=== PATIENT | male | born 1935 | race Caucasian/White ===

== ENCOUNTER → 2016-04-20 | Outpatient (CLI) | payer BC ==
[~2016-04-20] MED LIST: ACEB200C PO; ACET-1256 PO; ASPEC81 PO; CLB/200 PO; EZET10TA41 PO; FURO-85 PO; MELA1TAB48 PO; NISO20TA PO; OXYSR10 PO; SENN-61 PO; VALS320T2 PO; [UNRECOGNIZED DRUG - REMARK] PO
[2016-04-20 11:13] LABS: BASO % 0.2 %; BASO ABS # 0.02 K/uL (0-0.2); COMPLETE YES; EOS % 3.7 %; HEMATOCRIT 45.1 % (42-52); IG% 0.2 %; LYMPH % 11.1 %; LYMPH ABS # 1.06 K/uL (1.2-3.4); MEAN CELL VOLUME 83.8 fL (80-100); MEAN CORPUSCULAR HEMOGLOBIN 29.7 pg (25-34); MEAN CORPUSCULAR HGB CONC 35.5 g/dl (32-36); MEAN PLATELET VOLUME 9.5 fL (7.4-10.4); MONO % 9.2 %; NEUT % 75.6 %; PLATELET COUNT 199 K/uL (130-400); RED BLOOD COUNT 5.38 M/uL (4.7-6.1); WHITE BLOOD COUNT 9.56 K/uL (4.8-10.8)
[2016-04-20 11:15] LABS: URINE APPEARANCE CLEAR (CLEAR); URINE BILIRUBIN NEG (NEG); URINE COLOR DK YELLOW; URINE EPITHELIAL CELL AUTO 0-5 /lpf (0-5); URINE NITRITE NEG (NEG); UROBILINOGEN NEG (NEG)
[2016-04-20 11:24] LABS: ALT/SGPT 29 U/L (12-78); AST/SGOT 18 U/L (15-37); BLOOD UREA NITROGEN 15 mg/dl (7-18); BUN/CREATININE RATIO 13.8 (10-20); CALCIUM 9.1 mg/dl (8.5-10.1); CARBON DIOXIDE 31 mmol/L (21-32); CHLORIDE 103 mmol/L (98-107); GLUCOSE 110 mg/dl (70-99); POTASSIUM 3.8 mmol/L (3.5-5.1); SODIUM 141 mmol/L (136-145); URIC ACID 6.2 mg/dl (2.6-7.2)
[2016-04-20 11:25] LABS: ESTIMATED AVERAGE GLUCOSE 114 mg/dl; HA1C FLAG Normal (Normal)
[2016-04-20 11:27] LABS: MANUAL MICROSCOPIC REQUIRED? NO; REVIEW REQ? NO
[2016-04-20 11:35] LABS: CHOLESTEROL 120 mg/dl (0-200); HDL CHOLESTEROL 40 mg/dl; LDL CHOLESTEROL CALCULATED 55 mg/dl; TRIGLYCERIDES 123 mg/dl (0-150); VERY LOW DENSITY LIPOPROT CALC 25 mg/dl
--- NOTE | 2016-04-26 05:47 | CODING QUERY MEDICAL NECESSITY ---
SUPPORTING DIAGNOSIS NEEDED A supporting diagnosis is required for the test/procedure performed on this patient in order for us to be reimbursed by the patient's insurance. Please provide a supporting diagnosis for the following test/procedure listed below next to the test name along with your signature. *If there is no additional diagnosis for this patient that would support the following test/procedure please document that below next to the test/procedure. Test(s)/Procedure(s) that require a supporting diagnosis: DOS 04/20 * Hba1c DIAGNOSIS: Provider Signature: Date: Thank you Melba Valenzuela [facility] Information Management Once completed, please kindly fax back to [phone] For questions please call [phone]
== END | disposition home or self-care (01) ==
LOC: C.LAB1850 09:23
PROVIDERS: ATTEND Internal Medicine
DX: E78.00 Pure hypercholesterolemia, unspecified (principal); R73.9 Hyperglycemia, unspecified

== ENCOUNTER → 2016-05-09 | Outpatient (CLI) | payer BC ==
[2016-05-09 15:23] LABS: URINE APPEARANCE CLEAR (CLEAR); URINE BILIRUBIN NEG (NEG); URINE COLOR YELLOW; URINE EPITHELIAL CELL AUTO 0-5 /lpf (0-5); URINE NITRITE NEG (NEG); URINE PH 5.5 (4.5-7.5); URINE SPECIFIC GRAVITY 1.018 (1.000-1.030); UROBILINOGEN NEG (NEG)
[2016-05-09 15:35] LABS: MANUAL MICROSCOPIC REQUIRED? NO; REVIEW REQ? NO
== END | disposition home or self-care (01) ==
LOC: C.LAB1850 14:27
PROVIDERS: ATTEND Internal Medicine
DX: R31.29 Other microscopic hematuria (principal)

== ENCOUNTER → 2016-08-18 | Outpatient (CLI) | payer BC ==
[~2016-08-18] VITALS: Ht 172.7 cm; Wt 117.0 kg
[2016-08-18 16:07] VITALS: BP 152/76; PULSE 55; Ht 172.7 cm; Wt 117.0 kg
== END | disposition home or self-care (01) ==
LOC: C.NEUR 14:12
PROVIDERS: ATTEND Internal Medicine Pulmonary Disease
DX: G47.33 Obstructive sleep apnea (adult) (pediatric) (principal); R60.9 Edema, unspecified

== ENCOUNTER → 2016-10-25 | Outpatient (CLI) | payer BC ==
[2016-10-25 09:38] LABS: BASO % 0.7 %; BASO ABS # 0.04 K/uL (0-0.2); COMPLETE YES; EOS % 4.4 %; HEMATOCRIT 46.2 % (42-52); IG% 0.3 %; LYMPH % 20.7 %; LYMPH ABS # 1.27 K/uL (1.2-3.4); MEAN CELL VOLUME 86.4 fL (80-100); MEAN CORPUSCULAR HEMOGLOBIN 30.1 pg (25-34); MEAN CORPUSCULAR HGB CONC 34.8 g/dl (32-36); MEAN PLATELET VOLUME 8.8 fL (7.4-10.4); MONO % 9.6 %; NEUT % 64.3 %; PLATELET COUNT 200 K/uL (130-400); RED BLOOD COUNT 5.35 M/uL (4.7-6.1); WHITE BLOOD COUNT 6.15 K/uL (4.8-10.8)
[2016-10-25 10:13] LABS: URINE APPEARANCE CLEAR (CLEAR); URINE BILIRUBIN NEG (NEG); URINE COLOR YELLOW; URINE EPITHELIAL CELL AUTO 0-5 /lpf (0-5); URINE NITRITE NEG (NEG); URINE PH 5.5 (4.5-7.5); URINE SPECIFIC GRAVITY 1.021 (1.000-1.030); UROBILINOGEN NEG (NEG)
[2016-10-25 10:14] LABS: ESTIMATED AVERAGE GLUCOSE 114 mg/dl; HA1C FLAG Normal (Normal); MANUAL MICROSCOPIC REQUIRED? NO; REVIEW REQ? NO
[2016-10-25 11:00] LABS: ALT/SGPT 41 U/L (12-78); AST/SGOT 26 U/L (15-37); BLOOD UREA NITROGEN 18 mg/dl (7-18); BUN/CREATININE RATIO 17.8 (10-20); CALCIUM 9.2 mg/dl (8.5-10.1); CARBON DIOXIDE 29 mmol/L (21-32); CHLORIDE 104 mmol/L (98-107); GLUCOSE 111 mg/dl (70-99); POTASSIUM 3.8 mmol/L (3.5-5.1); SODIUM 141 mmol/L (136-145); URIC ACID 7.4 mg/dl (2.6-7.2)
[2016-10-25 11:11] LABS: CHOLESTEROL 138 mg/dl (0-200); CHOLESTEROL/HDL RATIO 3.6; HDL CHOLESTEROL 38 mg/dl; LDL CHOLESTEROL CALCULATED 69 mg/dl; TRIGLYCERIDES 156 mg/dl (0-150); VERY LOW DENSITY LIPOPROT CALC 31 mg/dl
--- NOTE | 2016-10-31 10:34 | CODING QUERY MEDICAL NECESSITY ---
SUPPORTING DIAGNOSIS NEEDED A supporting diagnosis is required for the test/procedure performed on this patient in order for us to be reimbursed by the patient's insurance. Please provide a supporting diagnosis for the following test/procedure listed below next to the test name along with your signature. *If there is no additional diagnosis for this patient that would support the following test/procedure please document that below next to the test/procedure. Test(s)/Procedure(s) that require a supporting diagnosis: * HEMOGLOBIN A1C DIAGNOSIS: Provider Signature: Date: Thank you Rosita Bearden [email or web address] Information Management Once completed, please kindly fax back to [phone] For questions please call [phone]
== END | disposition home or self-care (01) ==
LOC: C.LAB1850 08:18
PROVIDERS: ATTEND Internal Medicine
DX: E78.00 Pure hypercholesterolemia, unspecified (principal); R35.8 Other polyuria; R73.9 Hyperglycemia, unspecified

== ENCOUNTER → 2017-07-23 | Outpatient (CLI) | payer BC ==
[~2017-07-23] MED LIST changes: -ASPEC81 PO; +ASPI-320 PO
[2017-07-23 10:20] LABS: BASO % 0.3 %; BASO ABS # 0.02 K/uL (0-0.2); EOS % 4.3 %; EOS ABS # 0.27 K/uL (0-0.5); HEMATOCRIT 44.6 % (42-52); HEMOGLOBIN 16.1 g/dL (14.0-18.0); IG# 0.02 K/uL (0.00-0.02); LYMPH % 24.3 %; LYMPH ABS # 1.51 K/uL (1.2-3.4); MEAN CELL VOLUME 84.8 fL (80-100); MEAN CORPUSCULAR HEMOGLOBIN 30.6 pg (25-34); MEAN CORPUSCULAR HGB CONC 36.1 g/dl (32-36); MEAN PLATELET VOLUME 8.5 fL (7.4-10.4); MONO % 7.6 %; MONO ABS # 0.47 K/uL (0.11-0.59); NEUT % 63.2 %; NEUT ABS # 3.93 K/uL (1.4-6.5); PLATELET COUNT 177 K/uL (130-400); RED CELL DISTRIBUTION WIDTH CV 13.8 % (11.5-14.5); RED CELL DISTRIBUTION WIDTH SD 42.5 fL (36.4-46.3); WHITE BLOOD COUNT 6.22 K/uL (4.8-10.8)
[2017-07-23 10:56] LABS: ALT/SGPT 40 U/L (12-78); AST/SGOT 26 U/L (15-37); BLOOD UREA NITROGEN 20 mg/dl (7-18); CALCIUM 9.2 mg/dl (8.5-10.1); CARBON DIOXIDE 30 mmol/L (21-32); CREATININE 1.09 mg/dl (0.60-1.40); GLUCOSE 117 mg/dl (70-99); POTASSIUM 3.8 mmol/L (3.5-5.1); SODIUM 138 mmol/L (136-145)
[2017-07-23 11:06] LABS: HEMOGLOBIN A1C 5.9 % (4.5-5.6)
[2017-07-23 11:08] LABS: CHOLESTEROL 124 mg/dl (0-200); LDL CHOLESTEROL CALCULATED 47 mg/dl
== END | disposition home or self-care (01) ==
LOC: C.LAB1850 09:22
PROVIDERS: ATTEND Internal Medicine
DX: E78.00 Pure hypercholesterolemia, unspecified (principal)

== ENCOUNTER 2023-06-25 08:11 | Observation (INO) ==
--- NOTE | 2023-05-28 11:07 | PAT Medication Instructions ---
Medication Instructions Date of Service May 28, 2023 Home Medications Medication Instructions Recorded aspirin 81 mg tablet,delayed 81 mg PO DAILY #90 tabs 12/20/18 release (Aspir-) CPAP Machine #1 ea 10/07/19 acebutolol 200 mg capsule 200 mg PO BID #180 caps 03/05/23 atorvastatin 40 mg tablet 40 mg PO QPM #90 tabs 03/05/23 vitamins A,C,Q-nbiv-iowodl 2,148 2 tab PO BID #120 tabs 05/24/23 mcg-113 mg-45 mg-17.4 mg tablet (PreserVision AREDS) aspirin 81 mg tablet,delayed release (Aspir-) 81 mg PO DAILY melatonin 5 mg capsule 5 mg PO HS furosemide 20 mg tablet 20 mg PO UD PRN leg swelling acebutolol 200 mg capsule 200 mg PO BID 4] atorvastatin 40 mg tablet 40 mg PO QPM vitamins A,C,L-wjeq-ydsfnv 2,148 mcg-113 mg-45 mg-17.4 mg tablet (PreserVision AREDS) 2 tab PO BID amlodipine 5 mg tablet 5 mg PO QAM ezetimibe 10 mg tablet (Zetia) 10 mg PO QPM multivitamin (Multiple Vitamins tablet) 1 tab PO DAILY valsartan 320 mg-hydrochlorothiazide 25 mg tablet 1 tab PO QAM STOP taking 2 weeks before surgery vitamins A,C,M-eezu-apofds 2,148 mcg-113 mg-45 mg-17.4 mg tablet (PreserVision AREDS) 2 tab PO BID DO NOT take the morning of surgery furosemide 20 mg tablet 20 mg PO UD PRN leg swelling multivitamin (Multiple Vitamins tablet) 1 tab PO DAILY valsartan 320 mg-hydrochlorothiazide 25 mg tablet 1 tab PO QAM Take morning of surgery With a small sip of water, OTHERWISE NOTHING TO EAT OR DRINK AFTER MIDNIGHT: aspirin 81 mg tablet,delayed release (Aspir-) 81 mg PO DAILY (unless surgeon directed otherwise) acebutolol 200 mg capsule 200 mg PO BID amlodipine 5 mg tablet 5 mg PO QAM Take evening before surgery melatonin 5 mg capsule 5 mg PO HS furosemide 20 mg tablet 20 mg PO UD PRN leg swelling (if needed) atorvastatin 40 mg tablet 40 mg PO QPM ezetimibe 10 mg tablet (Zetia) 10 mg PO QPM acebutolol 200 mg capsule 200 mg PO BID Other Notes If you have any questions please call us at [phone] or [phone] or [phone] or [phone]
--- NOTE | 2023-05-29 12:52 | Anesthesiology Consultation ---
Date of Service May 29, 2023 Assessment & Plan (1) Encounter for pre-operative examination: - [place] PCP pre-operative evaluation 06/18/23. Workload note sent to PCP regarding alk phos now elevated at 205. - outpatient joint: patient mentioned he currently has no arranged home support/lives alone in independent living at [facility]. Case discussed in detail with Dr. Parra including patient reporting fall history with gradual worsening over the past year. She advised patient will need home support per outpatient joint protocol and that otherwise further determination on patient's candidacy for outpatient joint is to Dr. Desouza. Surgeon's office made aware. Chart Review Chart Review: Pending: Refer to Additional Notes / Consult section and Patient seen in Pre Admission Testing Teaching & Discussion Pre-Anesthesia Teaching/Discussion Notes: Instructed NPO after midnight before surgery, except medications with 15 cc of water. Medication instructions provided according to the PAT guidelines. History Surgery Operation Date: 06/25/23 12:30 Proposed Procedures p OP: Right Total Hip Arthroplasty Anterior Approach - Lavell Desouza MD Height/Weight Height: 5 ft 7 in Weight: 70.307 kg Allergies Allergy/AdvReac Type Severity Reaction Status Date / Time clopidogrel Allergy Unknown RASH Verified 05/25/23 11:22 Medications Home Medications Medication Instructions Recorded Confirmed Last Taken aspirin 81 mg tablet,delayed 81 mg PO DAILY #90 tabs 12/20/18 05/25/23 Unknown release (Aspir-) melatonin 5 mg capsule 5 mg PO HS 01/13/19 05/25/23 Unknown CPAP Machine #1 ea 10/07/19 05/07/23 Unknown furosemide 20 mg tablet 20 mg PO UD PRN leg swelling 01/02/23 05/25/23 Unknown acebutolol 200 mg capsule 200 mg PO BID #180 caps 03/05/23 05/25/23 Unknown atorvastatin 40 mg tablet 40 mg PO QPM #90 tabs 03/05/23 05/25/23 Unknown vitamins A,C,Y-utft-aylcpc 2,148 2 tab PO BID #120 tabs 05/24/23 05/25/23 Unknown mcg-113 mg-45 mg-17.4 mg tablet (PreserVision AREDS) amlodipine 5 mg tablet 5 mg PO QAM 05/25/23 05/25/23 Unknown ezetimibe 10 mg tablet (Zetia) 10 mg PO QPM 05/25/23 05/25/23 Unknown multivitamin (Multiple Vitamins 1 tab PO DAILY 05/25/23 05/25/23 Unknown tablet) valsartan 320 1 tab PO QAM 05/25/23 05/25/23 Unknown mg-hydrochlorothiazide 25 mg tablet Past Medical History Medical History (Updated 05/29/23 @ 13:05 by Vira Fields PA-C) Balance problem balance issue (not at same baseline as 5 yr ago)/pt reports feels balance issue age related-gradually worsening per pt, denies recent falls Coronary artery disease, occlusive s/p cardiac stent 2000 Difficult intubation pt no longer has letter-no available information Dyspnea on exertion occasional with infrequent walking up inclines/stairs-chronic, denies change or worsening GERD (gastroesophageal reflux disease) rare History of blood transfusion age 11 History of fracture of skull age 11 History of myocardial infarction 1999 stent x1 Hypercholesterolemia Hypertension controlled, stable per pt Nocturia Obstructive sleep apnea CPAP-compliant Peripheral edema right leg on occ. - no change in baseline. hx venous testing 7 yr ago/no findngs. Phlegm in throat usually night hours/no trouble swallowing. Prediabetes Patient denies h/o stroke, seizures, heart failure, or blood clots/DVTs. Exercise / Class Metabolic Activity III < 4 Walking/Shop/Light housework (denies chest discomfort or shortness of breath with usual activities, ambulates with cane) Past Family History Family History Mother COPD (chronic obstructive pulmonary disease) Father Coronary heart disease Stroke Myocardial infarction Denies family history of Ovarian cancer Prostate cancer Breast cancer Colonic polyp Past Surgical History Surgical History History of arthroscopy of knee pt not sure History of cardiac cath [place] 2000 , [place] stent x1 . History of colonoscopy History of ear surgery History of left hip replacement History of surgical procedure on mouth dental implants History of tonsillectomy and adenoidectomy History of total left knee replacement History of total right knee replacement Past Anesthesia History Difficult Airway and No Family Hx of Anesthesia Complications History of PONV No Hx of PONV and No Hx of Motion Sickness Social History Smoking Status: Former smoker Do You Dip or Chew Tobacco: No Smoking End Date: age early 30's Hx Alcohol Use: Yes (social) alcohol intake frequency: other Alcohol Intake Frequency Comment: 2 shots a week Hx Substance Use: No substance use type: does not use Review of Systems Patient denies chest pain, fever, chills, cough, wheezing, or palpitations. Physical Exam Vital Signs Vitals BP 150/83 P 47 TEMP 98.5 SP02 94% on RA RESP 17 Physical Patient resting comfortably in chair in no acute distress, alert and oriented, responding appropriately throughout visit Full cervical extension range of motion without pain TMD < 3 finger breadths Mallampati Score 2 Dentition: several implants, denies chipped or loose teeth, or bridges Lungs: normal respiratory effort. Good air movement, clear throughout to auscultation, no adventitious breath sounds Cardiac: regular rate and rhythm, no murmurs noted Carotid arteries: negative bruit bilat Lab Results Anesthesia Preop Results Results Anesthesia Widget: WBC 7.71 K/ul (4.8-10.8) 05/29/23 Hgb 15.3 g/dl (14.0-18.0) 05/29/23 Hct 44.3 % (42.0-52.0) 05/29/23 Plt 224 K/uL (130-400) 05/29/23 Na 139 mmol/L (136-145) 05/29/23 K 3.6 mmol/L (3.5-5.1) 05/29/23 Cl 101 mmol/L (98-107) 05/29/23 CO2 30 mmol/L (21-32) 05/29/23 BUN 27 mg/dl (6-23) H 05/29/23 Creat 1.00 mg/dl (0.6-1.4) 05/29/23 Glucose Level 107 mg/dl (70-99(Fasting)) H 05/29/23 PT 10.6 Seconds (9.0-12.0) 05/29/23 PTT 28 Seconds (21-31) 05/29/23 INR 1.0 (0.9-1.1) 05/29/23 HA1c 6.3 % (4.5-5.6) H 05/29/23 Urine Color Yellow 05/29/23 Urine Appearance Clear (Clear) 05/29/23 Urine pH 7.0 (4.5-7.5) 05/29/23 Urine Specific [place] 1.018 (1.000-1.030) 05/29/23 Urine Protein 1+ (Negative) H 05/29/23 Urine Glucose (UA) Negative (Negative) 05/29/23 Urine Ketones Negative (Negative) 05/29/23 Urine Blood Negative (Negative) 05/29/23 Urine Nitrite Negative (Negative) 05/29/23 Urine Bilirubin Negative (Negative) 05/29/23 Urine Urobilinogen Negative (Negative) 05/29/23 Urine Leukocyte Esterase Negative (Negative) 05/29/23 Urine WBC (Auto) 0 /hpf (0-5) 05/29/23 Urine RBC (Auto) 0-4 /hpf (0-4) 05/29/23 Urine Hyaline Casts (Auto) 1-5 /lpf (0-5) 05/29/23 Urine Epithelial Cells (Auto) 0-5 /lpf (0-5) 05/29/23 Urine Bacteria (Auto) Negative (Negative) 05/29/23 Blood Type B Positive 05/29/23 Antibody Screen NEGATIVE 05/29/23 Testing Electrocardiogram Date: 05/29/23 Sinus bradycardia with 1st degree AV block with occasional PVCs, rate 57 bpm Chest X-Ray Date: 05/29/23 Cardiomegaly with no active disease in the chest.
--- NOTE | 2023-06-20 15:36 | History & Physical Report ---
Date of Service June 20, 2023 Assessment & Plan (1) Degenerative joint disease of right hip: Plan: Right total hip replacement direct anterior approach. Possible same-day surgery patient is a resident of [facility] and plans to be in the assisted living portion with home health with [facility] (2) Obesity (BMI 35.0-39.9 without comorbidity): History of Present Illness Chief Complaint: Right hip pain Primary Care Provider: Roxy Interiano MD Patient is an 87-year-old male active active male who presents with an extensive history of lower extremity osteoarthritis. He is status post successful bilateral knee replacements and successful left total hip replacement 03/07. He now presents with right hip and groin pain which she rates a 7 out of 10. He has decreased range of motion decreased standing and walking tolerance and pain with all activities of daily living. He is moderately obese but has radiographic evidence of end-stage arthritis of the hip and is admitted for elective hip replacement surgery. Allergies Allergy/AdvReac Type Severity Reaction Status Date / Time clopidogrel Allergy Unknown RASH Verified 06/18/23 10:25 Home Medications Medication Instructions Recorded Confirmed Type aspirin 81 mg tablet,delayed 81 mg PO DAILY #90 tabs 12/20/18 06/18/23 Rx release (Aspir-) melatonin 5 mg capsule 5 mg PO HS 01/13/19 06/18/23 History CPAP Machine #1 ea 10/07/19 06/18/23 Rx furosemide 20 mg tablet 20 mg PO UD PRN leg swelling 01/02/23 06/18/23 History acebutolol 200 mg capsule 200 mg PO BID #180 caps 03/05/23 06/18/23 Rx atorvastatin 40 mg tablet 40 mg PO QPM #90 tabs 03/05/23 06/18/23 Rx vitamins A,C,G-bxvl-abcocm 2,148 2 tab PO BID #120 tabs 05/24/23 06/18/23 Rx mcg-113 mg-45 mg-17.4 mg tablet (PreserVision AREDS) amlodipine 5 mg tablet 5 mg PO QAM 05/25/23 06/18/23 History ezetimibe 10 mg tablet (Zetia) 10 mg PO QPM 05/25/23 06/18/23 History multivitamin (Multiple Vitamins 1 tab PO DAILY 05/25/23 06/18/23 History tablet) valsartan 320 1 tab PO QAM 05/25/23 06/18/23 History mg-hydrochlorothiazide 25 mg tablet Past Med/Surg History Medical History GERD (gastroesophageal reflux disease) rare Difficult intubation pt no longer has letter-no available information Dyspnea on exertion occasional with infrequent walking up inclines/stairs-chronic, denies change or worsening History of blood transfusion age 11 History of fracture of skull age 11 Balance problem balance issue (not at same baseline as 5 yr ago)/pt reports feels balance issue age related-gradually worsening per pt, denies recent falls Phlegm in throat usually night hours/no trouble swallowing. History of myocardial infarction 1999 stent x1 Nocturia Prediabetes Coronary artery disease, occlusive s/p cardiac stent 2000 Hypercholesterolemia Hypertension controlled, stable per pt Obstructive sleep apnea CPAP-compliant Peripheral edema right leg on occ. - no change in baseline. hx venous testing 7 yr ago/no findngs. Surgical History History of left hip replacement History of surgical procedure on mouth dental implants History of colonoscopy History of total left knee replacement History of total right knee replacement History of cardiac cath [place] 2000 , [employer] stent x1 . History of tonsillectomy and adenoidectomy History of arthroscopy of knee pt not sure History of ear surgery Family History Mother COPD (chronic obstructive pulmonary disease) Father Coronary heart disease Stroke Myocardial infarction Denies family history of Ovarian cancer Prostate cancer Breast cancer Colonic polyp Social History Smoking Status: Former smoker Tobacco Type: Cigarettes, Pipe and Cigars Second Hand Exposure: Yes; Do You Dip or Chew Tobacco: No; Hx Alcohol Use: Yes (social) Hx Substance Use: No Preferred Language: Yakut Communication Ability: Effective Visual Impairment: No Limitations Hearing Ability: Normal Lbd Teacher Required: No Beliefs That Will Affect Care: None marital status: / Current Living Situation: Alone Current Living Situation Comment: lives alone independent living [place] current occupational status: retired Feels Safe at Home: Yes Childhood Exposure to Second-Hand Smoke: Yes Dental Care, Regularly: Yes Physical Activity Frequency: Daily Seatbelt Use: always Sunscreen Use: No Assistive Devices: Cane, CPAP, Glasses and Walker Review of Systems Review of Systems: Hip and groin pain Physical Exam Physical Exam: Weight 112 kg BMI 39 General: Obese male who appears his stated age. HEENT: NCAT, EOMI, PERRLA Neck: Without bruits Heart: Regular rate and rhythm no murmurs Lungs: Breath sounds clear and present in all aguirre Abdomen: Obese soft nontender bowel sounds are positive Extremities: Right leg shows equal leg lengths compared to the left passive range of motion is 5 to 85 degrees at the hip and -10 degrees internal rotation all which reproduces groin pain. Neurological and vascular: Intact Results & Data Results & Data Vital Signs (Past 12 Hours) Blood pressure is 130/85 Pulse 55
[~2023-06-25 08:11] MED LIST changes: -ACEB200C PO; -ACET-1256 PO; -ASPI-320 PO; -CLB/200 PO; -EZET10TA41 PO; -FURO-85 PO; -MELA1TAB48 PO; +MEPIVACAINE HCL 1.5% 30 ML VIAL ONE; -NISO20TA PO; -OXYSR10 PO; -SENN-61 PO; -VALS320T2 PO; -[UNRECOGNIZED DRUG - REMARK] PO
[2023-06-25] MEDS: LR 500ML BOLUS, THEN 15ML/HR IV SCH (09:22)
[2023-06-25] MEDS: LR 60ML/HR IV SCH (09:22)
[2023-06-25] MEDS: CeleBREX 200 MG CAP PO SCH ×2 (09:23→21:06)
[2023-06-25] MEDS: dexAMETHasone**PF** 10 MG/ML VIAL IV SCH (09:23)
[2023-06-25] MEDS: traMADol HCL 50 MG TABLET PO SCH (09:23)
[2023-06-25] MEDS: ACETAMINOPHEN 500 MG TAB PO SCH ×2 (09:23→21:06)
[2023-06-25] MEDS: FAMOTIDINE 20 MG TAB PO SCH (09:23)
[2023-06-25] MEDS: METOCLOPRAMIDE HCL 10 MG TABLET PO SCH (09:23)
[2023-06-25] MEDS: GABAPENTIN 300 MG CAP PO SCH (09:24)
[2023-06-25] MEDS ORDERED: MIDAZOLAM HCL 1 MG/ML 2ML VIAL ONE (09:35)
[2023-06-25] MEDS ORDERED: fentaNYL citrate PF 100 MCG/2 ML VIAL ONE (10:30)
--- NOTE | 2023-06-25 10:33 | History & Physical Bridge Note ---
Date of Service June 25, 2023 History & Physical Bridge Note I have examined the patient, reviewed the History & Physical and in the interval since the performance of the History & Physical I have noted the following changes of clinical significance: no changes noted
[2023-06-25] MEDS ORDERED: ATROPINE SULFATE 0.1 MG/ML 10ML SYR IV PRN (10:37)
[2023-06-25] MEDS ORDERED: fentaNYL citrate PF 100 MCG/2 ML VIAL IV PRN (10:37)
[2023-06-25] MEDS ORDERED: ePHEDrine sulfate 50 MG/ML AMP IV PRN (10:37)
[2023-06-25] MEDS ORDERED: ONDANSETRON INJ 2 MG/ML 2 ML VIAL IV PRN ×2 (10:37→17:30)
[2023-06-25] MEDS: TRANEXAMIC ACID 1,000 MG **IV Pre-op IV SCH (10:59)
[2023-06-25] MEDS: ceFAZolin 1000MG 1,000 MG/7.5 ML SYR IV ONE (11:18)
[2023-06-25] MEDS: ceFAZolin 2000MG 2,000 MG/15 ML SYR IV SCH ×2 (11:18→18:25)
[2023-06-25] MEDS ORDERED: ceFAZolin 330 MG/ML 1 GM VIAL ONE (11:29)
[2023-06-25] MEDS ORDERED: GLYCOPYRROLATE 0.2 MG/ML VIAL ONE (11:29)
[2023-06-25] MEDS ORDERED: PROPOFOL IV EMULSION 10 MG/ML 20 ML VIAL IV ONE (11:45)
[2023-06-25] MEDS ORDERED: ONDANSETRON INJ 2 MG/ML 2 ML VIAL ONE (11:45)
[2023-06-25] MEDS ORDERED: LIDOCAINE 2% 2 ML VIAL/AMP(20MG/ML) INFIL ONE (11:45)
[2023-06-25] MEDS: ROPIV 0.5% 246mg, Ketorolac 30mg, EPINEPHrine 0.5mg in NSS INFIL SCH (11:47)
[2023-06-25] MEDS: TRANEXAMIC ACID 1,000 MG **IV Intra-op IV SCH (12:20)
[2023-06-25] MEDS ORDERED: KETOROLAC 30 MG/ML VIAL ONE (12:22)
[2023-06-25] MEDS ORDERED: traMADol HCL 50 MG TABLET PO PRN ×2 (12:32)
[2023-06-25] MEDS ORDERED: ACETAMINOPHEN 500 MG TAB PO PRN (12:32)
--- NOTE | 2023-06-25 12:32 | Post Operative Brief Note ---
Immediate Post Op Note v1 Date of Surgery June 25, 2023 Pre & Post Diagnosis Operation Date: 06/25/23 10:35 Pre-Op Diagnosis: Right Hip Osteoarthritis Post-Op Diagnosis: Right Hip Osteoarthritis I identified the patient and participated in the time-out.: Yes Procedure Operation Date: 06/25/23 10:35 Actual Procedures p Right Total Hip Replacement - Anterior Approach(Right) - Lavell Desouza MD Surgeon Lavell Desouza MD Automotive Generator Repairer Sundeep Oliver PATeresa Estimated Blood Loss 100 Findings Consistent with Post-Op Diagnosis
--- NOTE | 2023-06-25 12:42 | Operative Report ---
Post Operative Report Pre & Post Diagnosis Operation Date: 06/25/23 10:35 Pre-Op Diagnosis: Right Hip Osteoarthritis Post-Op Diagnosis: Right Hip Osteoarthritis I identified the patient and participated in the time-out.: Yes Procedure Operation Date: 06/25/23 10:35 Actual Procedures p Right Total Hip Replacement - Anterior Approach(Right) - Lavell Desouza MD Surgeon Lavell Desouza MD Gauge And Weigh Machine Adjuster Sundeep Oliver PA-C Estimated Blood Loss 100 Findings Consistent with Post-Op Diagnosis severe degenerative changes with heart complete loss of weightbearing articular cartilage chronically inflamed synovial lining and a few large periarticular osteophytes. Patient also had a an obese body habitus with large muscle which made the approach difficult Specimens femoral head and bone and cartilage fragments Indications components used: [employer] anthology a fit system: Acetabulum size 52 with 25 mm dome screw and 36 mm highly cross-linked polyethylene liner. Femur size 6 high offset with 0 neck length 36 mm Oxinium head Description of Procedure following satisfactory spinal anesthesia the patient was supine on the operating room table. The right leg was placed in the traction device in the left leg in the well-leg darnell. Positioning was confirmed with fluoroscopy. The leg was prepared with ChloraPrep and draped sterilely. A surgical timeout was performed. An anterior approach was performed in the interval between the sartorius and ten sor muscles. The patient had a fairly large and thick subcutaneous fat layer. Hemostasis was obtained and eventually the fascia was identified. The interval was opened. The circumflex femoral vessels were identified and coagulated. An anterior capsulotomy was performed exposing the arthritic femoral neck and head. Fluoroscopy was used to confirm femoral neck resection level which was complet ed and the arthritic femoral head was removed. The acetabular self-retaining retractor was placed. Acetabular preparation was completed with excision of labral and some of the capsular tissue. The acetabulum was then reamed under direct vision. A 52 shell was impacted into a healthy bed in a position of 35 to 40 degrees of abduction 25 degrees of anteversion. A dome screw was placed followed by the polyethylene liner. A moderate-sized inferior osteophyte was removed. Local anesthetic was placed. The wound was irrigated. The femur was placed into a position of external rotation extension and adduction. The femoral canal was identified and was prepared up to a size 6. A trial reduction with a high offset neck and a 0 neck length head trial was performed. Fluoroscopy showed good fit and fill of the proximal canal very good orientation of the components, and islam of leg length and offset at the level of the lesser trochanter. The hip was dislocated. The trial component removed. Local anesthetic was placed. After irrigation the stem head complex of the same size was placed the hip was reduced with fluoroscopy showing similar findings. Wound was irrigated with 500 cc of experience irrigation. There was very little bleeding. The fascia was closed with a running suture of 0 strata fix as well as the deeper subcutaneous fat layers. The most superficial layer was closed with 3 oh strata fix. Dermabond Steri-Strips and a Prineo dressing was applied. Followed by a negative pressure wound dressing. The patient was returned to his bed in stable condition. Note: Sundeep VEGA was present and assisted throughout due to the complicated nature of this case. He help with preparation and set up, he or first assist registered nurse throughout. He assisted with hemostasis and exposure throughout the procedure. He also closed the fascial subcutaneous and skin layers and applied the postop dressing. I attest to the content of the Intraoperative Record and any orders documented therein. Any exceptions are noted below.
--- NOTE | 2023-06-25 13:26 | Fluoroscopy Report ---
FL hip RT 1V CLINICAL HISTORY: RIGHT ANTERIOR HIPright hip arthroplasty COMPARISON STUDY: None FLUOROSCOPY TIME: 11 seconds FLUOROSCOPY IMAGES: 1 EXPOSURE DOSE: 3.74 mGy FINDINGS: Right hip arthroplasty demonstrates satisfactory alignment. No acute fracture or on expecte d opaque foreign body identified. IMPRESSION: Fluoroscopic assistance as above. ACT 112: Negative or not required by law. Electronically signed by: Emre Woodard M.D. 06/25/2023 1:25 PM
--- NOTE | 2023-06-25 14:04 | Anesthesiology Progress Note ---
Date of Service June 25, 2023 Anesthesia Post Procedure Vital Signs Vital Signs: Temp Pulse Pulse Resp BP Pulse Ox O2 Del Method 06/25/23 14:00 50 L 14 193/82 H 96 Room Air 06/25/23 13:50 57 L 21 181/76 H 96 Room Air 06/25/23 13:40 47 L 22 155/79 H 99 Room Air 06/25/23 13:30 53 L 20 150/81 H 97 Room Air 06/25/23 13:20 54 L 14 160/76 H 96 Room Air 06/25/23 13:10 54 L 21 169/72 H 100 Oxymask 06/25/23 13:00 54 L 14 160/78 H 100 Oxymask 06/25/23 12:53 97.0 F L 56 L 16 155/73 H 95 Oxymask 06/25/23 09:11 98.2 F 51 L 18 97 Room Air O2 Flow Rate 06/25/23 14:00 06/25/23 13:50 06/25/23 13:40 06/25/23 13:30 06/25/23 13:20 06/25/23 13:10 4 06/25/23 13:00 6 06/25/23 12:53 6 06/25/23 09:11 Pain Intensity Right Leg: Pain Intensity: 2 Transfer of Care Handoff Completed per policy Notes Mental Status: alert / awake / arousable and participated in evaluation Patient Amnestic to Procedure: Yes Nausea / Vomiting: adequately controlled Pain: adequately controlled Airway Patency, RR, SpO2: stable & adequate BP & HR: stable & adequate Hydration State: stable & adequate Neuraxial Anesthesia: was administered and sensory block is resolving Anesthetic Complications: no major complications apparent and Pt Satisfied with anesthetic care
[2023-06-25] MEDS: hydrALAZINE HCL 20 MG/ML VIAL IV STA (14:23)
[2023-06-25] MEDS ORDERED: NALOXONE HCL 0.4 MG/1 ML VIAL/CARP IV PRN (17:30)
[2023-06-25] MEDS ORDERED: FUROSEMIDE 20 MG TAB PO PRN (17:30)
[2023-06-25] MEDS ORDERED: bisacodyL 10 MG SUPP PR PRN (17:30)
[2023-06-25] MEDS ORDERED: diphenhydrAMINE 50 MG/ML VIAL IV PRN (17:30)
[2023-06-25] MEDS ORDERED: MAGNESIUM HYDROXIDE SUSP 30 ML UDC PO PRN (17:30)
[2023-06-25] MEDS ORDERED: HYDROmorphone INJ 0.5 MG/0.5 ML SYR IV PRN (17:30)
[2023-06-25] MEDS: ceFAZolin 2000MG 2,000 MG/15 ML SYR IV ONE (17:45)
[2023-06-25] MEDS: SODIUM CHLORIDE 0.9% 1,000 ML IV SCH (18:02)
--- NOTE | 2023-06-25 20:47 | Hospitalist Consultation ---
Date of Consultation June 25, 2023 Assessment & Plan (1) Status post right hip replacement: s/p right DEDRA 06/24, doing well post-op pain control, bowel regimen PT/OT Follow CBC, BMP post op (2) Coronary artery disease, occlusive: s/p NIC to RCA 2000 no acute issues continue ASA, statin, beta vanessa (3) Prediabetes: HgbA1C 6.3% pre-op diet controlled no need for insulin (4) Hypertension: BPs elevated post-op, now normal hold HCTZ until tomorrow, reassess continue valsartan, amlodipine (5) Chronic venous stasis: hold home HCTZ post op, follow renal function receiving IVFs (6) Obstructive sleep apnea: continue CPAP qhs-ordered home CPAP for use here (7) Hypercholesterolemia: continue statin Plan DVT proph-SCDs, ASA bid Dispo-continued stay, hospitalist service will follow along History of Present Illness Reason for Consultation: Post-op medical management Requesting Physician: Dr. Desouza Attending Physician: Lavell Desouza MD History of Present Illness This pt is an 87 yo male with a h/o CAD s/p NIC to RCA 2000, prediabetes, HTN, HL, chronic venous stasis, OA, and CHEMO on CPAP who is admitted overnight after undergoing right DEDRA with Dr. Desouza. The hospitalist service was consulted for post-op medical management. Patient reports he is feeling great and was supposed to go home after the surgery today as an outpatient but his blood pressure was elevated and his temperature was little bit low so he was kept overnight as physical therapy had gone home for the day. He denies chest pain or shortness of breath, no nausea or vomiting, no lightheadedness. Has no pain. Allergies Allergy/AdvReac Type Severity Reaction Status Date / Time clopidogrel Allergy Unknown RASH Verified 06/25/23 09:01 Home Medications Medication Instructions Recorded Confirmed Type aspirin 81 mg tablet,delayed 81 mg PO DAILY #90 tabs 12/20/18 06/18/23 Rx release (Aspir-) melatonin 5 mg capsule 5 mg PO DAILY 01/13/19 06/25/23 History CPAP Machine #1 ea 10/07/19 06/18/23 Rx furosemide 20 mg tablet 20 mg PO UD PRN leg swelling 01/02/23 06/25/23 History acebutolol 200 mg capsule 200 mg PO BID #180 caps 03/05/23 06/25/23 Rx vitamins A,C,Q-hcbg-evwzju 2,148 2 tab PO BID #120 tabs 05/24/23 06/25/23 Rx mcg-113 mg-45 mg-17.4 mg tablet (PreserVision AREDS) amlodipine 5 mg tablet 5 mg PO QAM 05/25/23 06/25/23 History ezetimibe 10 mg tablet (Zetia) 10 mg PO QPM 05/25/23 06/25/23 History multivitamin (Multiple Vitamins 1 tab PO DAILY 05/25/23 06/25/23 History tablet) valsartan 320 1 tab PO QAM 05/25/23 06/25/23 History mg-hydrochlorothiazide 25 mg tablet (Diovan HCT) aspirin 81 mg tablet,delayed 81 mg PO DAILY 06/25/23 06/25/23 History release atorvastatin 40 mg tablet (Lipitor) 40 mg PO QPM 06/25/23 06/25/23 History Patient History Medical History GERD (gastroesophageal reflux disease) rare Difficult intubation pt no longer has letter-no available information Dyspnea on exertion occasional with infrequent walking up inclines/stairs-chronic, denies change or worsening History of blood transfusion age 11 History of fracture of skull age 11 Balance problem balance issue (not at same baseline as 5 yr ago)/pt reports feels balance issue age related-gradually worsening per pt, denies recent falls Phlegm in throat usually night hours/no trouble swallowing. History of myocardial infarction 1999 stent x1 Nocturia Prediabetes Coronary artery disease, occlusive s/p cardiac stent 2000 Hypercholesterolemia Hypertension controlled, stable per pt Obstructive sleep apnea CPAP-compliant Peripheral edema right leg on occ. - no change in baseline. hx venous testing 7 yr ago/no findngs. Surgical History (Updated 06/25/23 @ 20:54 by Hattie Philippe MD) Status post right hip replacement History of left hip replacement History of surgical procedure on mouth dental implants History of colonoscopy History of total left knee replacement History of total right knee replacement History of cardiac cath [place] 2000 , Desire stent x1 . History of tonsillectomy and adenoidectomy History of arthroscopy of knee pt not sure History of ear surgery Family History Mother COPD (chronic obstructive pulmonary disease) Father Coronary heart disease Stroke Myocardial infarction Denies family history of Ovarian cancer Prostate cancer Breast cancer Colonic polyp Social History Smoking Status: Former smoker Tobacco Type: Cigarettes, Pipe and Cigars Smoking End Date: age early 30's; Second Hand Exposure: Yes; Do You Dip or Chew Tobacco: No; Hx Alcohol Use: Yes Hx Substance Use: No Preferred Language: Greek Communication Ability: Effective Visual Impairment: No Limitations Hearing Ability: Normal Sales And Marketing Analyst Required: No Beliefs That Will Affect Care: None marital status: / Current Living Situation: Alone Current Living Situation Comment: Independent living at [facility] current occupational status: retired Other Information That Helps Us Care for You: No ([facility] transports to and from the [facility]) Feels Safe at Home: Yes Safety Concerns: Feels Safe At This Time Childhood Exposure to Second-Hand Smoke: Yes Dental Care, Regularly: Yes Physical Activity Frequency: Daily Seatbelt Use: always Sunscreen Use: No Assistive Devices: CPAP, Glasses and Walker Assistive Devices Comment: cane or walker, dental implants. Review of Systems Review of Systems: All systems reviewed & are unremarkable except as noted in HPI & below Physical Exam Constitutional: WD/WN, vitals as above Respiratory: normal respiratory effort, lungs clear to auscultation Cardiovascular: Rate/Rhythm: regular rate and regular rhythm Heart Sounds: no murmur Extremities: + edema (2+ pitting edema with chronic venous stasis changes bilateral legs) Psychiatric: A+Ox3, euthymic affect Results & Data Results & Data Vital Signs (Past 12 Hours) Vital Signs Temp Pulse Pulse Pulse Resp BP Pulse Ox 06/25/23 19:29 36.5 C 78 18 138/81 92 06/25/23 18:35 06/25/23 17:32 36.4 C L 71 18 146/76 H 93 06/25/23 16:30 76 21 143/59 H 95 06/25/23 16:00 71 22 134/67 94 06/25/23 15:30 71 22 159/75 H 97 06/25/23 15:00 67 15 164/78 H 98 06/25/23 14:45 63 16 155/73 H 95 06/25/23 14:36 62 14 167/86 H 96 06/25/23 14:30 36.3 C L 59 L 22 192/87 H 95 06/25/23 14:20 62 16 191/95 H 97 06/25/23 14:10 57 L 18 198/86 H 98 06/25/23 14:00 50 L 14 193/82 H 96 06/25/23 13:50 57 L 21 181/76 H 96 06/25/23 13:40 47 L 22 155/79 H 99 06/25/23 13:30 53 L 20 150/81 H 97 06/25/23 13:20 54 L 14 160/76 H 96 06/25/23 13:10 54 L 21 169/72 H 100 06/25/23 13:00 54 L 14 160/78 H 100 06/25/23 12:53 36.1 C L 56 L 16 155/73 H 95 06/25/23 09:11 36.8 C 51 L 18 97 O2 Del Method O2 Flow Rate 06/25/23 19:29 Room Air 06/25/23 18:35 Room Air, CPAP 06/25/23 17:32 Room Air 06/25/23 16:30 Room Air 06/25/23 16:00 Room Air 06/25/23 15:30 Room Air 06/25/23 15:00 Room Air 06/25/23 14:45 Room Air 06/25/23 14:36 Room Air 06/25/23 14:30 Room Air 06/25/23 14:20 Room Air 06/25/23 14:10 Room Air 06/25/23 14:00 Room Air 06/25/23 13:50 Room Air 06/25/23 13:40 Room Air 06/25/23 13:30 Room Air 06/25/23 13:20 Room Air 06/25/23 13:10 Oxymask 4 06/25/23 13:00 Oxymask 6 06/25/23 12:53 Oxymask 6 06/25/23 09:11 Room Air Laboratory Results Preop CBC, CMP, coags reviewed PG Care Time/CCT Total # of Minutes Spent Total Time Spent with Patient: Total time spent is greater than 50% in coordination of care (as documented) at patient's floor/unit and/or counseling patient: Coding Level of Care Code 82101 IN/OBS CONSULT LVL 3,45M Diagnoses Status post right hip replacement Z96.641 Coronary artery disease, occlusive I25.10 Prediabetes R73.03 Primary hypertension I10 Hypertension type: primary hypertension Chronic venous stasis I87.8 Obstructive sleep apnea G47.33 Hypercholesterolemia E78.00 (4) Hypertension Hypertension type: primary hypertension Qualified Code(s): I10 - Essential (primary) hypertension
[2023-06-25] MEDS: ASPIRIN 81 MG ECTAB PO SCH (21:05)
[2023-06-25] MEDS: EZETIMIBE 10 MG TAB PO SCH (21:06)
[2023-06-25] MEDS: ATORVASTATIN 40 MG TAB PO SCH (21:06)
[2023-06-25] MEDS: SENNA 8.6 MG TAB PO SCH (21:06)
[2023-06-25] MEDS: DOCUSATE SODIUM 100 MG CAP PO SCH (21:06)
[2023-06-25] MEDS: ORTHO JOINT ANESTHETIC ONE (23:25)
[2023-06-25] MEDS: ACEBUTOLOL HCL 200 MG CAPSULE PO SCH (23:32)
--- NOTE | 2023-06-26 07:44 | Orthopedic Progress Note ---
Date of Service June 26, 2023 Assessment & Plan (1) Degenerative joint disease of right hip: Plan: Postop day 1 status post right direct anterior total hip arthroplasty PT/OT protocols. Weightbearing as tolerated. DVT prophylaxis-aspirin p.o. twice daily, SCDs Pain management as written. BP elevated-appreciate medical management. DC planning-patient is planning on home health services upon discharge. Plan on discharge to home today if progressing with his physical therapy and remaining stable. (2) Obesity (BMI 35.0-39.9 without comorbidity): Admission and Anticipated Discharge Date Admission Date: June 25, 2023 Subjective Postop day 1 Patient sleeping upon arrival. Easily awoken. Patient feeling very comfortable this morning. No pain in the operative hip. Denies shortness of breath, chest pain or lightheadedness. Patient states that he slept very well last night. He is hoping to go home today. Physical Exam Physical Exam: Beverly dressing is clean, dry, and intact. Patient has mild ecchymosis around the dressing itself. Thigh has some swelling consistent with surgery. Calves are soft nontender. Leg lengths appear equal. Neurovascular intact. He has good dorsiflexion and plantarflexion of the right foot. Results & Data Vital Signs (Past 12 Hours) Vital Signs Temp Pulse Pulse Resp BP Pulse Ox O2 Del Method 06/26/23 07:28 36.6 C 54 L 16 172/77 H 92 Room Air 06/26/23 03:26 138/81 06/26/23 02:30 56 L 19 97 06/26/23 00:00 50 L 19 98 06/25/23 23:42 36.0 C L 66 14 134/78 96 Room Air
[2023-06-26] MEDS: MELATONIN 3 MG TAB PO SCH (08:01)
[2023-06-26] MEDS: MULTIVITAMIN TAB PO SCH (08:01)
[2023-06-26] MEDS: amLODIPine BESYLATE 5 MG TAB PO SCH (08:01)
[2023-06-26] MEDS: VALSARTAN 80 MG TAB PO SCH (08:02)
[2023-06-26] MEDS: CEROVITE ADV FORMULA TAB PO SCH (08:02)
[2023-06-26] MEDS ORDERED: hydroCHLOROthiazide 25 MG TAB PO SCH (09:00)
[2023-06-26 09:55] LABS: Basophils # (auto) 0.01 K/uL (0.00-0.20); Basophils % (auto) 0.1 %; Eosinophils # (auto) 0.02 K/uL (0.00-0.50); Eosinophils % (auto) 0.1 %; Hematocrit (blood only) 38.2 % (42.0-52.0); Hemoglobin 13.5 g/dl (14.0-18.0); Immature Granulocytes # (auto) 0.08 K/uL (0.01-0.20); Immature Granulocytes % (auto) 0.5 %; Lymphocytes # (auto) 1.28 K/uL (1.20-3.40); Lymphocytes % (auto) 8.7 %; Mean Corpuscular Hemoglobin 30.2 pg (25.0-34.0); Mean Corpuscular Hgb Conc 35.3 g/dL (32.0-36.0); Mean Corpuscular Volume 85.5 fL (80.0-100.0); Mean Platelet Volume 9.1 fL (9.4-12.4); Monocytes % (auto) 8.9 %; Neutrophils # (auto) 11.94 K/uL (1.40-6.50); Neutrophils % (auto) 81.7 %; Platelet Count 235 K/uL (130-400); RDW Coefficient of Variation 13.3 % (11.5-14.5); RDW Standard Deviation 41.3 fL (36.4-46.3); Red Blood Count 4.47 M/uL (4.70-6.10); White Blood Count 14.63 K/ul (4.8-10.8)
[2023-06-26 10:31] LABS: BUN Creatinine Ratio 24.6 (10-20); Calcium 8.7 mg/dl (8.6-10.3); Creatinine Clr Calc Pharmacy 39.9 ml/min; Est GFR (African American) 61.4 ml/min; Potassium 4.3 mmol/L (3.5-5.1)
--- NOTE | 2023-06-26 10:52 | Hospitalist Progress Note ---
Date of Service June 26, 2023 Assessment & Plan (1) Status post right hip replacement: Plan: s/p right DEDRA 06/24, doing well post-op pain control, bowel regimen PT/OT hgb stable at 13.5 Doing well, stable for discharge (2) Coronary artery disease, occlusive: Plan: s/p NIC to RCA 2000 no acute issues continue ASA, statin, beta vanessa (3) Prediabetes: Plan: HgbA1C 6.3% pre-op diet controlled no need for insulin (4) Hypertension: Plan: BPs remain elevated post-op, now normal held HCTZ but can resume continue valsartan, amlodipine (5) Chronic venous stasis: Plan: held home HCTZ post op, renal function normal-ok to resume HCTZ on discharge (6) Obstructive sleep apnea: Plan: continue CPAP qhs-ordered home CPAP for use here (7) Hypercholesterolemia: Plan: continue statin Plan DVT proph-SCDs, ASA bid Dispo-medically stable for discharge to home Admission and Anticipated Discharge Date Admission Date: June 25, 2023 Subjective Pt feeling well, only mild pain in right hip at times. Is anxious to get home and plans on walking over to the [employer] entertainment this evening at [facility] Physical Exam Constitutional: WD/WN, vitals as above Respiratory: normal respiratory effort, lungs clear to auscultation Cardiovascular: Rate/Rhythm: regular rate and regular rhythm Heart Sounds: no murmur Extremities: + edema (1+ pitting edema with chronic venous stasis changes bilateral legs) Psychiatric: A+Ox3, euthymic affect Results & Data Results & Data Vital Signs (Past 12 Hours) Vital Signs Temp Pulse Pulse Resp BP Pulse Ox O2 Del Method 06/26/23 07:28 36.6 C 54 L 16 172/77 H 92 Room Air 06/26/23 03:26 138/81 06/26/23 02:30 56 L 19 97 06/26/23 00:00 50 L 19 98 06/25/23 23:42 36.0 C L 66 14 134/78 96 Room Air Laboratory Results CBC, BMP reviewed PG Care Time/CCT Total # of Minutes Spent Total Time Spent with Patient: Total time spent is greater than 50% in coordination of care (as documented) at patient's floor/unit and/or counseling patient: Coding Level of Care Code 13936 SUB INP/OBS CARE Diagnoses Status post right hip replacement Z96.641 Coronary artery disease, occlusive I25.10 Prediabetes R73.03 Primary hypertension I10 Hypertension type: primary hypertension Chronic venous stasis I87.8 Obstructive sleep apnea G47.33 Hypercholesterolemia E78.00 (4) Hypertension Hypertension type: primary hypertension Qualified Code(s): I10 - Essential (primary) hypertension
--- NOTE | 2023-06-28 09:32 | Discharge Summary ---
Date of Service June 28, 2023 Admission HPI Per Admitting Provider Patient is an 87-year-old male active active male who presents with an extensive history of lower extremity osteoarthritis. He is status post successful bilateral knee replacements and successful left total hip replacement 03/07. He now presents with right hip and groin pain which she rates a 7 out of 10. He has decreased range of motion decreased standing and walking tolerance and pain with all activities of daily living. He is moderately obese but has radiographic evidence of end-stage arthritis of the hip and is admitted for elective hip replacement surgery. Admission Exam Per Admitting Provider Physical Exam: Weight 112 kg BMI 39 General: Obese male who appears his stated age. HEENT: NCAT, EOMI, PERRLA Neck: Without bruits Heart: Regular rate and rhythm no murmurs Lungs: Breath sounds clear and present in all aguirre Abdomen: Obese soft nontender bowel sounds are positive Extremities: Right leg shows equal leg lengths compared to the left passive range of motion is 5 to 85 degrees at the hip and -10 degrees internal rotation all which reproduces groin pain. Neurological and vascular: Intact Principal Diagnosis Right Hip Osteoarthritis Discharge Data Allergies Allergy/AdvReac Type Severity Reaction Status Date / Time clopidogrel Allergy Unknown RASH Verified 06/25/23 09:01 Consultations 06/25/23 17:30 Consult Internal Medicine Routine Procedures Performed Operation Date: 06/25/23 10:35 Actual Procedures p Right Total Hip Replacement - Anterior Approach(Right) - Lavell Desouza MD Ordered Studies 06/25/23 10:35 FL hip RT 1V Routine Hospital Course (1) Degenerative joint disease of right hip: Patient: ЕЛЕНА MCKEE Admit Date: 06/25/23 MR#: [id number] Att Phy: Lavell Desouza MD Acct ID: [id number] Shazia Phy: Roxy Interiano MD Date: 1935 Fam Phy: Age: 87 Location: 3W Sex: M Room/Bed: [facility] cc: ~ *NOTICE TO RECEIVING [employer]/AGENCY This information is strictly Confidential and protected under [place] law. [place] law prohibits you from making any further disclosure of this information unless further disclosure is expressly permitted by the written consent of the person to whom it pertains or is authorized by law. A general authorization for the release of medical or other information is not sufficient for this purpose. Hospital accepts no responsibility if the information is made available to any other person, INCLUDING THE PATIENT. Date of Service June 26, 2023 Assessment & Plan (1) Degenerative joint disease of right hip: Plan: Postop day 1 status post right direct anterior total hip arthroplasty PT/OT protocols. Weightbearing as tolerated. DVT prophylaxis-aspirin p.o. twice daily, SCDs Pain management as written. BP elevated-appreciate medical management. DC planning-patient is planning on home health services upon discharge. Plan on discharge to home today if progressing with his physical therapy and remaining stable. (2) Obesity (BMI 35.0-39.9 without comorbidity): Admission and Anticipated Discharge Date Admission Date: June 25, 2023 Subjective Postop day 1 Patient sleeping upon arrival. Easily awoken. Patient feeling very comfortable this morning. No pain in the operative hip. Denies shortness of breath, chest pain or lightheadedness. Patient states that he slept very well last night. He is hoping to go home today. Physical Exam Physical Exam: Maddy dressing is clean, dry, and intact. Patient has mild ecchymosis around the dressing itself. Thigh has some swelling consistent with surgery. Calves are soft nontender. Leg lengths appear equal. Neurovascular intact. He has good dorsiflexion and plantarflexion of the right foot. Results & Data Vital Signs (Past 12 Hours) Vital Signs Temp Pulse Pulse Resp BP Pulse Ox O2 Del Method 06/26/23 07:28 36.6 C 54 L 16 172/77 H 92 Room Air 06/26/23 03:26 138/81 06/26/23 02:30 56 L 19 97 06/26/23 00:00 50 L 19 98 06/25/23 23:42 36.0 C L 66 14 134/78 96 Room Air Signed By: <Electronically signed by Lavell Desouza MD> 06/26/23 0759 <Electronically signed by Sundeep Oliver PA-C> 06/26/23 0744 Created: 06/26/23 0741 (2) Obesity (BMI 35.0-39.9 without comorbidity): Total Time Total Time Spent Total Time Spent (In Minutes): 10 Discharge Plan Discharge Items Patient Disposition: Home - Home Health Services Reason For Visit: POST SURGICAL CARE Discharge Diagnosis: Right Hip Osteoarthritis Activity: Per Instructions section Weightbearing: Full weightbearing Non-emergency contact: Surgeon Call non-emergency contact if: you have any medication questions, your pain is not controlled, your temperature is above 101.5, your wound has increased redness and your wound has increased drainage Follow-up/Referrals: [facility] [Outside] (Per surgeon's office) Roxy Interiano MD [Primary Care Provider] - Lavell Desouza MD [Surgeon] - (Follow up with Dr. Desouza or his PA in 2 weeks from the day of your surgery for your first post operative visit. ) Diet: Regular Addtl Attending Provider Instructions: DR. CHAN POST-OP INSTRUCTIONS FOR TOTAL HIP ARTHROPLASTY PLEASE REVIEW PRIOR TO SURGERY Day of Surgery You will be admitted and meet the nursing and anesthesia team. Dr. Desouza will see you and sign your operative side. Anesthesia will place your spinal anesthetic in the pre-op area Your surgery will be performed and last approximately 1 2 hours. Upon waking, you will notice a dressing and ice pack on your hip. You will remain in the recovery room for 1 2 hours, then be transferred to your room in the ambulatory surgical area if you are to go home the same day as your surgery or transferred to the orthopedic floor if you will be staying overnight. Most of Dr. Chan total hip patients go home the same day as surgery. This depends on how well you feel. Patients generally seem to feel better in their own home environment, and the risk of exposure to bad bugs is much lower. (Your post-operative medications will be sent to your pharmacy approximately 1-2 days prior to your procedure) Day 1 post-op (if you have an overnight stay in the hospital) You will have bloodwork drawn in the morning Physical therapy will evaluate you in the morning. You will start getting out of bed and ambulating with a walker. They will instruct you on hip motion exercises. Use your cold packs as instructed. This will decrease swelling and minimize pain. shipping services sales representative will discuss your discharge plan. Discharge will generally be around 11am Day 1 post-op (all patients) You will be taking Aspirin 81mg twice for 4 weeks to decrease the risk of a blood clot. You will most likely have a drain and a MADDY (superficial wound VAC) dressing post-operatively. This will keep your incision dry as well as aid in early healing. The batteries will wear out and the VAC will lose suction around day 6 - 7 post-op. At that time, you may turn off the device and disconnect from the dressing. You must keep the dressing on until your first post- operative visit with Dr. Desouza. If the dressing appears to be saturated, please call our office. Day 2 14 post-op You will have a home nurse visit to assess your status and remove your drain on post-op day 2. You are permitted to shower immediately with the VAC. Do not soak the dressing let the shower flow on your opposite side, and pat dry the plastic. Once the dressing has been removed, you may shower normally with the incision exposed. Do not rub the area simply let soapy water run over the incision and lightly pat dry. Therapy will begin on post-op day 3. Your therapy prescription will be sent to your home therapy company/therapist You should continue doing your home exercises Week 2 post-op and forward You will have your first post-op appointment 2 weeks after surgery which should have been scheduled for you by our office. This appointment will be to check your incision, progression of therapy and pain control. Xrays will be taken to evaluate the prosthesis. You will continue to use a cane or a walker until you feel safe enough to stop using it. You will have a 6-week post-op appointment which should have been scheduled for you by our office. Xrays will be taken to evaluate the prosthesis. You will continue to advance range of motion. By 3 to 4 months after surgery, you should have almost full range of motion and may resume most activities. You may have some pain around the hip with certain activities this is completely normal. You will be scheduled for a 1 year post-op appointment to assess your outcome (sooner if Dr. Desouza feels necessary). Pain: The immediate post-op period after hip replacement surgery can be painful. However, the degree and frequency of the pain is generally much less than knee replacement surgery. You should take your pain medicine as you need it, especially prior to physical therapy and bedtime. Your pain will decrease and you may transition to a milder pain medicine (with less side effects, such as Tylenol) as soon as possible. It is common to have pain at night that interferes with sleep this can last for several months. Pain medicines can cause nausea and constipation do not take more than you need. You may be prescribed one or more of the following MEDICATIONS: 1. Celebrex this controls inflammation and makes pain medications mor effective it will be taken once or twice a day 2. Tylenol a pain medicine that can help to decrease your pain you should take 1000mg three times a day 3. Tramadol a pain medicine that can be taken every 4-6 hours (instead of Oxycodone) as needed to control your pain 4. Oxycodone a VERY strong pain medicine that can be taken every 4-6 hours (instead of Tramadol) as needed to control your pain. This medication has the most side effects and is usually not necessary for hip replacements. 5. Aspirin 81mg blood thinning medication to help minimize the risk of development of blood clots unfortunate side effects of pain medicine include nausea and constipation if you experience these issues or have any questions about your post-op medications, call [facility] at for assistance/advice on how to manage these issues Hip replacement surgery does not require a lot of aggressive physical therapy. Learning to walk safely and obeying hip precautions are most important. While in the hospital, you will be shown a series of home exercises you should perform these exercises 3 4 times daily in addition to physical therapy. After the completion of home therapy (approx.. 2 weeks), most therapy exercises can be done on your own. You should walk several times a day. Try not to be standing for more than an hour at a time during the first 4 weeks post-op as you may experience more swelling. If you develop swelling, you need to elevate your legs/feet at or above the level of your heart. You may progress from a walker to a cane to walking independently as you feel comfortable. Unless it is an emergency, YOUR ARE NOT PERMITTED TO HAVE ANY DENTAL CLEANING/WORK UNTIL 3 MONTHS AFTER SURGERY. You will be required to take an antibiotic prior to any dental cleaning or dental work in order to prevent your joint prothesis from getting infected. This medication is a one time per visit dose to be taken one hour prior to appointment. You may call our office for this prescription or your dentist may be willing to prescribe the medication. Remember to contact [facility] at if you develop any signs of infection which include increased swelling, pain, redness, drainage from inci tran, warmth, fever, chills or severe pain unrelieved by pain medication. If you develop any chest pain or shortness of breath, you should proceed immediately to the nearest Emergency Room. It is normal to run a low-grade fever after surgery. If your fever is consistent at 101.0 or higher, you will need to contact the office. Pending Studies at Discharge: No Stand-Alone Forms: My [facility] Medications and DC Order Prescriptions: Continued acebutolol 200 mg capsule 200 mg PO BID Qty: 180 3RF PreserVision AREDS 2,148 mcg-113 mg-45 mg-17.4mg tablet 2 tab PO BID Qty: 120 2RF Rx Instructions: administer with AM and PM meals (DME) CPAP Machine Misc See Rx Instructions .ROUTE .MEDSUPPLY Qty: 1 0RF Rx Instructions: CPAP 12 cm water pressure C flex setting #2 with heated humidification, tubing, and supplies. JATINDER: 99+ years. furosemide 20 mg tablet 20 mg PO UD PRN (Reason: leg swelling ) melatonin 5 mg capsule 5 mg PO DAILY multivitamin [Multiple Vitamins] tablet 1 tab PO DAILY amlodipine 5 mg tablet 5 mg PO QAM ezetimibe [Zetia] 10 mg tablet 10 mg PO QPM valsartan-hydrochlorothiazide [Diovan HCT] 320-25 mg tablet 1 tab PO QAM atorvastatin [Lipitor] 40 mg tablet 40 mg PO QPM Held aspirin [Aspir-81] 81 mg tablet,delayed release (DR/EC) 81 mg PO DAILY Qty: 90 3RF Hold Instructions: You will be taking your Aspirin tablet twice daily for 4 weeks after your surgery as part of Dr. Desouza's anticoagulation protocol. Once the 4 weeks has been completed, you will resume your once daily dosing. aspirin 81 mg Tablet,Delayed Release (Dr/Ec) 81 mg PO DAILY Hold Instructions: You will be taking your aspirin twice daily for 4 weeks. Resume your once daily dosing of aspirin after 4 weeks of taking your aspirin twice daily. Admission Data Admit Date/Time: 06/25/23 15:16 Attending Provider: Lavell Desouza Admit Provider: Lavell Desouza Primary Care Provider: Roxy Interiano Other Providers: [email or web address]; Hattie Philippe Other Interventions: Discharge Summary Assessment (RN) Last Done: 06/26/23 12:59
== END 2023-06-26 13:01 | disposition home health service (06) ==
LOC: ASU 08:11 → 3W 08:11
DX: I10 Essential (primary) hypertension; Z79.82 Long term (current) use of aspirin; Z68.35 Body mass index [BMI] 35.0-35.9, adult; Z79.899 Other long term (current) drug therapy; R73.03 Prediabetes; M65.9 Synovitis and tenosynovitis, unspecified; Z87.891 Personal history of nicotine dependence; I25.10 Atherosclerotic heart disease of native coronary artery without angina pectoris; Z88.8 Allergy status to other drugs, medicaments and biological substances; M16.11 Unilateral primary osteoarthritis, right hip; I87.8 Other specified disorders of veins; I25.2 Old myocardial infarction; E66.9 Obesity, unspecified; K21.9 Gastro-esophageal reflux disease without esophagitis; G47.33 Obstructive sleep apnea (adult) (pediatric); E78.00 Pure hypercholesterolemia, unspecified